=== PATIENT | female | born 1950 | race Caucasian/White ===

== ENCOUNTER → 2017-03-09 | Outpatient (CLI) | payer MEDICARE | END | disposition home or self-care (01) | LOC: Rad HDHVI 08:55 | PROVIDERS: ATTEND Internal Medicine Cardiovascular Disease | DX: R07.89 Other chest pain (principal) | CPT/HCPCS: 93880 ==

== ENCOUNTER → 2017-03-15 | Outpatient (CLI) | payer MEDICARE ==
[~2017-03-15] MED LIST: ADENOSINE 86 MG in GIVE UN-DILUTED 0 ML IV ONE; ADENOSINE 90 MG/30 ML INJ IV ONE
== END | disposition home or self-care (01) ==
LOC: Rad HDHVI 12:45
PROVIDERS: ATTEND Internal Medicine Cardiovascular Disease
DX: R07.89 Other chest pain (principal)
CPT/HCPCS: 78452; 93005; 93306; 96374; 96375; A9500; J0153

== ENCOUNTER 2019-09-22 09:08 | Inpatient (IN) | payer MEDICARE ==
[~2019-09-22] VITALS: Ht 170.2 cm; Wt 98.1 kg
[~2019-09-22 09:08] MED LIST changes: -ADENOSINE 86 MG in GIVE UN-DILUTED 0 ML IV ONE; -ADENOSINE 90 MG/30 ML INJ IV ONE; +MET25T PO; +SPIR25TA88 PO
[2019-09-22 10:15] LABS: Basophils # (auto) 0.1 10 ^3/uL (0-0.2); Basophils % (auto) 0.4 % (0.0-2.0); Eosinophils # (auto) 0 10 ^3/uL (0-0.8); Eosinophils % (auto) 0.2 % (0.0-7.0); Hematocrit 40.5 % (36.0-46.0); Hemoglobin 13.6 g/dL (12.2-16.2); Lymphocytes # (auto) 1.3 10 ^3/uL (0.4-5.4); Lymphocytes % (auto) 8.3 % (10.0-50.0); Mean Corpuscular Hemoglobin 30.3 pg (28.0-32.0); Mean Corpuscular Hgb Conc. 33.5 g/dL (32.0-36.0); Mean Corpuscular Volume 90.5 fL (80.0-100.0); Monocytes # (auto) 1.1 10 ^3/uL (0-1.3); Monocytes % (auto) 6.7 % (0.0-12.0); Neutrophils # (auto) 13.6 10 ^3/uL (1.6-8.6); Neutrophils % (auto) 84.4 % (37.0-80.0); Platelet Count (auto) 297 10^3/uL (140-450); Red Blood Cells 4.48 10^6/uL (4.0-5.20); Red Cell Distribution Width 14.7 % (11.8-14.3); White Blood Cell 16.1 10^3/uL (4.4-10.8)
[2019-09-22 10:24] LABS: Albumin 2.5 g/dL (3.4-5.0); Calcium 9.4 mg/dL (8.5-10.1); Potassium 3.6 mmol/L (3.5-5.1)
[2019-09-22 10:29] LABS: BUN/Creatinine Ratio 18.6; Bilirubin, Total 1.5 mg/dL (0.2-1.0); Total Protein 8.6 g/dL (6.4-8.2)
[2019-09-22] MEDS ORDERED: HYDROcodone-ACET 10/325MG TAB PO ONE (10:30)
[2019-09-22] MEDS ORDERED: METOCLOPRAMIDE HCL 5MG/ml INJ 2ml VIAL IV PRN (12:15)
[2019-09-22 14:30] VITALS: BP 120/55
[2019-09-22] MEDS ORDERED: MIRT1TAB38 PO (18:35)
[2019-09-22] MEDS: HYDROcodone-ACET 5/325MG TAB PO PRN (19:24)
[2019-09-22] MEDS ORDERED: MIRTAZAPINE 30 MG TAB PO PRN (19:45)
[2019-09-22] MEDS: SPIRONOLACTONE 25 MG TAB PO SCH (21:17)
[2019-09-22] MEDS: METOPROLOL TARTRATE 25 MG TAB PO SCH (21:19)
[2019-09-22] MEDS: MIRTAZAPINE 30 MG TAB PO PRN (21:20)
[2019-09-22 21:29] VITALS: BP 126/51
[2019-09-23 05:22] VITALS: BP 135/59
[2019-09-23] MEDS: HYDROcodone-ACET 5/325MG TAB PO PRN ×2 (06:15→15:13)
[2019-09-23 08:49] VITALS: BP 121/63
[2019-09-23] MEDS: levoFLOXacin 500MG 100 ML IV SCH (10:27)
[2019-09-23] MEDS: SPIRONOLACTONE 25 MG TAB PO SCH ×2 (10:30→20:24)
[2019-09-23] MEDS: METOPROLOL TARTRATE 25 MG TAB PO SCH ×2 (10:30→20:25)
[2019-09-23 13:00] VITALS: BP 127/58
[2019-09-23 13:20] LABS: Basophils # (auto) 0.2 10 ^3/uL (0-0.2); Basophils % (auto) 1.1 % (0.0-2.0); Eosinophils # (auto) 0.1 10 ^3/uL (0-0.8); Eosinophils % (auto) 0.7 % (0.0-7.0); Hematocrit 39.1 % (36.0-46.0); Hemoglobin 13.2 g/dL (12.2-16.2); Lymphocytes # (auto) 1.7 10 ^3/uL (0.4-5.4); Lymphocytes % (auto) 11.5 % (10.0-50.0); Mean Corpuscular Hemoglobin 30.2 pg (28.0-32.0); Mean Corpuscular Hgb Conc. 33.7 g/dL (32.0-36.0); Mean Corpuscular Volume 89.5 fL (80.0-100.0); Monocytes # (auto) 1.4 10 ^3/uL (0-1.3); Monocytes % (auto) 9.3 % (0.0-12.0); Neutrophils # (auto) 11.3 10 ^3/uL (1.6-8.6); Neutrophils % (auto) 77.4 % (37.0-80.0); Nucleated Red Blood Cells % 0.1 %; Platelet Count (auto) 311 10^3/uL (140-450); Red Blood Cells 4.36 10^6/uL (4.0-5.20); Red Cell Distribution Width 14.2 % (11.8-14.3); White Blood Cell 14.5 10^3/uL (4.4-10.8)
[2019-09-23 13:35] LABS: Albumin 2.3 g/dL (3.4-5.0); Calcium 9.2 mg/dL (8.5-10.1); Potassium 3.9 mmol/L (3.5-5.1)
[2019-09-23 13:40] LABS: BUN/Creatinine Ratio 22.6; Total Protein 8.1 g/dL (6.4-8.2)
[2019-09-23 17:12] VITALS: BP 126/49
[2019-09-23] MEDS: MIRTAZAPINE 30 MG TAB PO PRN (20:25)
[2019-09-23 20:26] VITALS: BP 104/52
[2019-09-23 22:03] VITALS: BP 135/62
[2019-09-24] MEDS: HYDROcodone-ACET 5/325MG TAB PO PRN ×3 (01:33→17:41)
[2019-09-24 08:54] VITALS: BP 134/60
[2019-09-24] MEDS: levoFLOXacin 500MG 100 ML IV SCH (09:59)
[2019-09-24] MEDS: METOPROLOL TARTRATE 25 MG TAB PO SCH ×2 (10:01→21:49)
[2019-09-24] MEDS: SPIRONOLACTONE 25 MG TAB PO SCH ×2 (10:01→21:48)
[2019-09-24 12:33] VITALS: BP 121/52
[2019-09-24 17:08] VITALS: BP 135/55
[2019-09-24 21:11] VITALS: BP 117/59
[2019-09-24] MEDS: MIRTAZAPINE 30 MG TAB PO PRN (21:49)
[2019-09-25] MEDS: HYDROcodone-ACET 5/325MG TAB PO PRN ×3 (01:19→18:22)
[2019-09-25 04:51] VITALS: BP 129/63
[2019-09-25 09:00] VITALS: BP 140/70
[2019-09-25] MEDS: levoFLOXacin 500MG 100 ML IV SCH (09:25)
[2019-09-25] MEDS: SPIRONOLACTONE 25 MG TAB PO SCH ×2 (09:28→22:50)
[2019-09-25] MEDS: METOPROLOL TARTRATE 25 MG TAB PO SCH ×2 (09:28→22:50)
[2019-09-25 13:00] VITALS: BP 120/58
[2019-09-25 13:48] LABS: Basophils # (auto) 0 10 ^3/uL (0-0.2); Basophils % (auto) 0.5 % (0.0-2.0); Eosinophils # (auto) 0.1 10 ^3/uL (0-0.8); Eosinophils % (auto) 1.6 % (0.0-7.0); Hematocrit 38.1 % (36.0-46.0); Lymphocytes # (auto) 1.6 10 ^3/uL (0.4-5.4); Lymphocytes % (auto) 18.1 % (10.0-50.0); Mean Corpuscular Hemoglobin 30.5 pg (28.0-32.0); Mean Corpuscular Volume 89.6 fL (80.0-100.0); Monocytes # (auto) 0.6 10 ^3/uL (0-1.3); Monocytes % (auto) 6.5 % (0.0-12.0); Neutrophils # (auto) 6.6 10 ^3/uL (1.6-8.6); Neutrophils % (auto) 73.3 % (37.0-80.0); Platelet Count (auto) 313 10^3/uL (140-450); Red Blood Cells 4.26 10^6/uL (4.0-5.20); Red Cell Distribution Width 14.6 % (11.8-14.3); White Blood Cell 9.1 10^3/uL (4.4-10.8)
[2019-09-25 14:15] LABS: Albumin 2.2 g/dL (3.4-5.0); Calcium 9.4 mg/dL (8.5-10.1); Potassium 4.1 mmol/L (3.5-5.1)
[2019-09-25 14:18] LABS: BUN/Creatinine Ratio 21.4; Bilirubin, Total 0.7 mg/dL (0.2-1.0); Total Protein 8.2 g/dL (6.4-8.2)
[2019-09-25 17:00] VITALS: BP 125/60
[2019-09-25 22:00] VITALS: BP 128/60
[2019-09-26] MEDS: HYDROcodone-ACET 5/325MG TAB PO PRN ×2 (01:32→10:31)
[2019-09-26 05:00] VITALS: BP 134/62
[2019-09-26 08:00] VITALS: BP 143/70
[2019-09-26] MEDS: METOPROLOL TARTRATE 25 MG TAB PO SCH (10:05)
[2019-09-26] MEDS: levoFLOXacin 500MG 100 ML IV SCH (10:05)
[2019-09-26] MEDS: SPIRONOLACTONE 25 MG TAB PO SCH (10:05)
[2019-09-26 12:00] VITALS: BP 110/62
[2019-09-26 16:55] VITALS: BP 110/62
[2019-09-26 16:56] VITALS: BP 117/59
== END 2019-09-26 17:59 | disposition home or self-care (01) | DRG 373 ==
LOC: ER 09:08 → WEST WING 09:09
PROVIDERS: ADMIT Internal Medicine Cardiovascular Disease; ATTEND Internal Medicine Cardiovascular Disease
DX: K65.9 Peritonitis, unspecified (principal); I10 Essential (primary) hypertension; D72.829 Elevated white blood cell count, unspecified; F32.9 Major depressive disorder, single episode, unspecified; I25.10 Atherosclerotic heart disease of native coronary artery without angina pectoris; Z90.49 Acquired absence of other specified parts of digestive tract; Z48.03 Encounter for change or removal of drains; Z79.899 Other long term (current) drug therapy
CPT/HCPCS: 36415; 74176; 80053; 83605; 85025; 87040; 87077; 87186; 87205; 87493; G0378; J1956

== ENCOUNTER → 2019-10-06 | Outpatient (CLI) | payer MEDICARE ==
[~2019-10-06] MED LIST changes: +MIRT1TAB38 PO
== END | disposition home or self-care (01) ==
LOC: Rad HDHVI 10:03
PROVIDERS: ATTEND Internal Medicine Cardiovascular Disease
DX: K85.90 Acute pancreatitis without necrosis or infection, unspecified (principal); K43.2 Incisional hernia without obstruction or gangrene; K57.30 Diverticulosis of large intestine without perforation or abscess without bleeding; I70.0 Atherosclerosis of aorta; Z90.49 Acquired absence of other specified parts of digestive tract
CPT/HCPCS: 74176

== ENCOUNTER → 2019-10-11 | Outpatient (CLI) | payer MEDICARE | END | disposition home or self-care (01) | LOC: Rad HDHVI 15:58 | PROVIDERS: ATTEND Internal Medicine Cardiovascular Disease | DX: R06.02 Shortness of breath (principal); R07.89 Other chest pain | CPT/HCPCS: 93306 ==

== ENCOUNTER → 2019-10-16 | Outpatient (CLI) | payer MEDICARE ==
[~2019-10-16] VITALS: Ht 30.5 cm; Wt 0.5 kg
[~2019-10-16] MED LIST changes: +ADENOSINE 80 MG in GIVE UN-DILUTED 0 ML IV ONE; +ADENOSINE 90 MG/30 ML INJ IV ONE
[2019-10-16 12:05] LABS: Urine Blood 1+ /uL (Negative); Urine Specific Gravity 1.023 (1.001-1.035)
[2019-10-16 12:09] LABS: Basophils # (auto) 0 10 ^3/uL (0-0.2); Basophils % (auto) 0.4 % (0.0-2.0); Eosinophils # (auto) 0.2 10 ^3/uL (0-0.8); Eosinophils % (auto) 2.5 % (0.0-7.0); Hematocrit 46.2 % (36.0-46.0); Hemoglobin 15.3 g/dL (12.2-16.2); Lymphocytes # (auto) 2.6 10 ^3/uL (0.4-5.4); Lymphocytes % (auto) 32.1 % (10.0-50.0); Mean Corpuscular Hemoglobin 29.5 pg (28.0-32.0); Mean Corpuscular Hgb Conc. 33.2 g/dL (32.0-36.0); Mean Corpuscular Volume 88.9 fL (80.0-100.0); Monocytes # (auto) 0.5 10 ^3/uL (0-1.3); Monocytes % (auto) 6.3 % (0.0-12.0); Neutrophils # (auto) 4.7 10 ^3/uL (1.6-8.6); Neutrophils % (auto) 58.7 % (37.0-80.0); Nucleated Red Blood Cells % 0.1 %; Platelet Count (auto) 260 10^3/uL (140-450); Red Cell Distribution Width 15.5 % (11.8-14.3); White Blood Cell 8.1 10^3/uL (4.4-10.8)
[2019-10-16 12:12] LABS: Albumin 3.4 g/dL (3.4-5.0); Calcium 9.4 mg/dL (8.5-10.1); Potassium 3.6 mmol/L (3.5-5.1)
[2019-10-16 12:18] LABS: BUN/Creatinine Ratio 15.7; Total Protein 8.3 g/dL (6.4-8.2)
[2019-10-16 12:22] LABS: Free T4 (Free Thyroxine) 1.13 ng/dL (0.89-1.76)
== END | disposition home or self-care (01) ==
LOC: Rad HDHVI 09:05
PROVIDERS: ATTEND Internal Medicine Cardiovascular Disease
DX: I10 Essential (primary) hypertension (principal); E03.9 Hypothyroidism, unspecified; K90.9 Intestinal malabsorption, unspecified; N39.0 Urinary tract infection, site not specified; D51.9 Vitamin B12 deficiency anemia, unspecified; Z79.899 Other long term (current) drug therapy; Z82.49 Family history of ischemic heart disease and other diseases of the circulatory system
CPT/HCPCS: 36415; 78452; 80053; 80061; 81003; 82306; 82607; 83036; 84439; 84443; 85025; 87086; 93005; 96374; 96375; A9500; J0153